=== PATIENT | male | born 1965 | race Hispanic/Latino ===

== ENCOUNTER 2023-06-12 16:17 | Emergency (ER) | payer SELFPAY ==
[2023-06-12 16:19] VITALS: BP 149/83; PULSE 61; RESP 16; TEMP 36.1; BMI 21.7
[2023-06-12 16:21] VITALS: BP 149/83; PULSE 61; RESP 16; TEMP 36.1
--- NOTE | 2023-06-12 16:28 | EDS_ITS ---
HPI History of Present Illness Chief Complaint: Nausea/Vomiting Detail of Chief Complaint: Nausea and vomiting and headache Informant: patient and spouse/S.O. Onset/Context/Timing Onset: Days Context: Sudden Onset Timing: Continuous and Waxes and wanes Quality: Nausea and vomiting after teeth extraction past Thursday Location: All of his teeth Current Severity: Moderate Maximum Severity: Severe Worsened by: Attempt to eat or drink anything Relieved by: Nothing Associated Symptoms Associated Symptoms: Headache Narrative Narrative: Patient is a 58-year-old male on no medication with no past medical history who had all of his teeth extracted this past Thursday by a dentist in [place]. He was placed on Tylenol for his pain. He has not been able to eat or drink anything for the past several days. He does endorse thirst, dry mouth and lightheadedness with standing. He also complains of global headache. He denies photophobia, neck pain or neck stiffness. He denies ringing's ears, decreased hearing or ear pain. He denies sore throat. He denies respiratory or cardiac symptoms. He denies diarrhea. He denies blood in his emesis or coffee-ground appearing emesis. He denies abdominal pain. He does endorse decreased urine output. He denies rash. Prior similar symptoms: No Recent Illness/Hospitalization: No PFSH PFSH Medical History no medical history no medical history Home Medications hydrocodone-acetaminophen 5-325mg 5mg-325mg 1 tab PO Q6H PRN PRN Pain 3 days #10 TABLETS 06/12/23 [Rx Last Taken Unknown] metformin 500 mg tablet 250 mg (1/2 x 500 mg) PO DAILY #30 tabs 06/12/23 [Rx Last Taken Unknown] ondansetron 4 mg disintegrating tablet 4 mg PO Q8H PRN PRN Nausea #10 tabs 06/12/23 [Rx Last Taken Unknown] Allergy/AdvReac Type Severity Reaction Status Date / Time No Known Allergies Allergy Verified 06/12/23 16:18 Surgical History no surgical history no surgical history Social History (Updated 06/12/23 @ 16:[address] Tan Thrasher MD) household members: spouse Smoking Status: Never smoker substance use type: does not use ROS ROS ED Constitutional Constitutional ED: Denies chills, fever(s), subjective, sweats or weight loss Eyes Eyes: Denies change in vision or diplopia ENT ENT ED: Denies ear pain, rhinorrhea or sore throat Cardiovascular Cardiovascular: Denies chest pain or palpitations Respiratory/Chest Respiratory/Chest: Denies cough, dyspnea or dyspnea on exertion Gastrointestinal Gastrointestinal: Reports nausea and vomiting; Denies abdominal pain, constipation or diarrhea Genitourinary Genitourinary ED: Denies dysuria, hematuria or urinary frequency Musculoskeletal Musculoskeletal: Denies arthralgias, back pain, myalgias or neck pain Integumentary Denies rash Neurologic Neurologic: Reports headache(s); Denies paresthesias or weakness Endocrine Endocrinology: Denies cold intolerance or heat intolerance Hematologic/Lymphatic Hematologic/Lymphatic: Reports systems reviewed and no addt'l complaints, except as documented EXAM Physical Exam Const Vital Signs: 06/12/23 16:19 06/12/23 16:21 Temperature 96.9 F L 96.9 F L Temperature Source Temporal Temporal Pulse Rate 61 61 Respiratory Rate 16 16 Blood Pressure 149/83 H 149/83 H Blood Pressure Mean 105 105 Positive well nourished and well developed General Appearance ED: well developed and NAD; Negative for cyanotic, diaphoretic or pallor HEENT Reports dry mucous membranes HEENT Narrative: Atraumatic and normocephalic. Ears are normal. Nares patent. Posterior pharynx is normal. Mouth ED: Yes dry mucous membranes Mouth: dry mucous membranes Eyes PERRL and EOMs intact bilaterally General Eye ED: Negative for pale conjunctiva or scleral icterus Neck no lymphadenopathy, supple and no JVD Chest Wall inspection of chest normal and palpation of chest normal Resp normal respiratory effort and clear to auscultation bilaterally Cardio regular rate, regular rhythm, S1 normal heart sound, S2 normal heart sound and no murmurs GI normal to inspection, nondistended, normoactive bowel sounds, non-tender, non- distended and no masses; Negative for hepatosplenomegaly Back/Spine no CVA tenderness Extremity normal to inspection General Extremety ED: Negative for edema or tenderness General Extremity: Negative for edema Neuro oriented x3, CN's II-XII intact bilaterally and no sensory deficits noted Sensorium / Orientation: alert Psych mental status grossly normal Skin no rashes or lesions noted, no wounds and No skin turgor normal General Skin Exam: Negative for jaundice or pallor MDM MDM MDM Narrative Medical decision making narrative: Appears dehydrated. Will obtain BMP to assess renal function, CO2 anion gap as well as electrolytes. IV fluids were ordered. Antiemetic was ordered as well as morphine for his headache. History & Record Review Additional record(s) reviewed:: No prior records Lab Data Labs: Laboratory Results - last 24 hr 06/12/23 16:50 Sodium 138 Potassium 3.7 Chloride 105 Carbon Dioxide 30.0 Anion Gap 3 L BUN 13 Creatinine 0.70 Estim Creat Clear Calc 93.97 Est GFR (MDRD) Af Amer 147 Est GFR (MDRD) Non-Af 121 BUN/Creatinine Ratio 18.4 Glucose 228 H Calcium 8.6 Treatment and Re-Evaluation :: Reassessed at 09/08/2003. He feels markedly better. Still complains of slight headache. He was discharged with short course of pain medicine for his gum and head pain. He was started on metformin since he has new onset diabetes Discharge Plan Triage Chief Complaint: Nausea/Vomiting ED Provider: Tan Thrasher Dx/Rx/DC Orders Clinical Impression: Headache, New onset type 2 diabetes mellitus, Dehydration, mild, Nausea & vomiting Instructions: ED Diabetes- Overview, ED Vomiting (Adult) Prescriptions: New metformin 500 mg tablet 250 mg PO DAILY Qty: 30 0RF hydrocodone-acetaminophen [hydrocodone-acetaminophen] 5-325 mg tablet 1 tab PO Q6H PRN PRN (Reason: Pain) 3 Days Qty: 10 0RF ondansetron [ondansetron] 4 mg tablet,disintegrating 4 mg PO Q8H PRN PRN (Reason: Nausea) Qty: 10 0RF Primary Care Provider: Care Physician,No Primary Referrals: Suki Martin DO [Med Staff - Press Operator Helper] - 1 Week Care Physician,No Primary [Primary Care Provider] - Disposition Disposition: Home, Self Care
[2023-06-12] MEDS: 0.9% Normal Saline (1000mL) 1,000 ML 1000 ML IV (17:01)
[2023-06-12] MEDS: Morphine 4 MG/ML Syringe IV (17:02)
[2023-06-12] MEDS: Ondansetron 4 MG/2 ML Vial IV (17:02)
[2023-06-12 17:27] LABS: Anion Gap 3 (5-15); BUN 13 mg/dL (7-18); BUN/Creat Ratio 18.4 RATIO (10-20); Calcium,Total 8.6 mg/dL (8.5-10.1); Chloride 105 mmol/L (98-107); EST Glomerular Filtration Rate 121 mL/min (>60); Est Glom Filt Rate - Afr Amer 147 mL/min (>60); Estimated Creatinine Clearance 93.97 ml/min; Glucose 228 mg/dL (74-106); Potassium 3.7 mmol/L (3.5-5.1); Sodium Level 138 mmol/L (136-145)
[2023-06-12 19:30] VITALS: BP 132/78; PULSE 71; RESP 18; O2SAT 99
== END 2023-06-12 19:31 | disposition home or self-care (01) ==
PROVIDERS: Emergency Provider Emergency Medicine; Visit Provider Emergency Medicine
DX: E11.9 Type 2 diabetes mellitus without complications (principal); R11.2 Nausea with vomiting, unspecified; R51.9 Headache, unspecified; E86.0 Dehydration
CPT/HCPCS: 80048; 96361; 96374; 96375; 99283; J7030; A4216; J2405

== ENCOUNTER 2025-05-25 13:48 | Emergency (ER) | payer SELFPAY ==
[2025-05-25 13:49] VITALS: BP 133/74; PULSE 72; RESP 14; TEMP 36.5; O2SAT 98
[2025-05-25 14:25] LABS: Hematocrit 41.7 % (40-54); Hemoglobin 14.9 g/dL (13.0-16.5); Immature Granulocytes Count 0.060 X10^3/uL (0.0-0.0); Mean Corp Hgb Conc 35.7 g/dL (32-36); Mean Corpuscular Volume 84.9 fL (80-94); Mean Platelet Vol. 10.3 fl (6.2-12.0); NRBC Flagged by Analyzer 0 % (0-5); Platelet Count 203 K/mm3 (150-450); RBC Distribution Width CV 12.0 % (11.6-14.6); RBC Distribution Width SD 36.8 fl (35.1-43.9); Red Blood Count 4.91 M/mm3 (4.6-6.2); White Blood Count 11.1 K/mm3 (4.4-11.0)
[2025-05-25] MEDS: 0.9% Normal Saline (1000mL) 1,000 ML 1000 ML IV (14:26)
[2025-05-25 14:28] VITALS: BP 130/81; BP 131/83; BP 139/79; PULSE 73; PULSE 80
--- NOTE | 2025-05-25 14:59 | EDS_ITS ---
HPI History of Present Illness Chief Complaint: Dizziness Detail of Chief Complaint: Nausea and vomiting x 30 since last night Informant: patient, spouse/S.O. and family Onset/Context/Timing Onset: Yesterday Context: Sudden Onset Timing: Intermittent Quality: Patient reports he vomited 30 times. Location: Patient noted red material with last several episodes of emesis Current Severity: Severe Maximum Severity: Severe Worsened by: Nothing Relieved by: nothing Associated Symptoms Associated Symptoms: Periumbilical abdominal pain Narrative Narrative: Patient is a 60-year-old male. He has history of type 2 diabetes. He was on insulin. He is taking neither and has not taken any medicine for diabetes for the past 12 months. He presently is on no medication. He denies fever, chills night sweats. He denies headache, visual, ocular auditory symptoms. He denies rhinorrhea, congestion or sore throat. He denies chest pain, shortness of shemar ath, difficulty breathing or cough. He states he does get pain when he vomits. He has had no diarrhea. He denies black or maroon-colored stool. Has not noted any coffee grounds in his emesis. He does endorse dry mouth and orthostatic lightheadedness. He denied decreased urine output. He has had no abdominal surgery. Prior similar symptoms: No Recent Illness/Hospitalization: No PFSH PFS Medical History Diabetes MRSA (methicillin resistant staph aureus) culture positive Home Medications ?Medication ?Instructions ?Recorded ?Last Taken ?Type hydrocodone-acetaminophen 5-325mg 1 tab PO Q6H PRN PRN Pain 3 days 06/12/23 Unknown Rx 5mg-325mg #10 TABLETS metformin 500 mg tablet 250 mg (1/2 x 500 mg) PO OMARI LY #30 06/12/23 Unknown Rx tabs ondansetron 4 mg disintegrating 4 mg PO Q8H PRN PRN Na usea #10 tabs 06/12/23 Unknown Rx tablet insulin NPH isoph U-100 human 100 15 unit (0.15 mL) marie bcut BID #15 mL 10/07/24 Unknown Rx unit/mL (3 mL) subcutaneous pen (Novolin N FlexPen) metformin 500 mg tablet 500 mg PO BID 30 days #60 ta bs 10/07/24 Unknown Rx oseltamivir 75 mg capsule 75 mg PO BID 2 days #4 caps 10/07/24 Unknown Rx famotidine 40 mg tablet (Pepcid) 40 mg PO DAILY #7 tab s 05/25/25 Unknown Rx ondansetron 4 mg disintegrating 4 mg PO Q8H PRN PRN Na usea #10 tabs 05/25/25 Unknown Rx tablet Allergy/AdvReac Type Severity Reaction Status Date / Time No Known Allergies Allergy Verified 05/25/25 13:51 Social History household members: spouse Smoking Status: Never smoker substance use type: does not use ROS ROS ED Constitutional Constitutional ED: Denies chills, fever(s), subjective or sweats Eyes Eyes: Denies blurry vision, change in vision or diplopia ENT ENT ED: Denies rhinorrhea or sore throat Cardiovascular Cardiovascular: Denies chest pain or palpitations Respiratory/Chest Respiratory/Chest: Denies cough, dyspnea or dyspnea on exertion Gastrointestinal Gastrointestinal: Reports abdominal pain, nausea and vomiting; Denies constipation, diarrhea or melena Genitourinary Genitourinary ED: Denies dysuria, hematuria or urinary frequency Musculoskeletal Musculoskeletal: Denies myalgias Integumentary Denies rash Neurologic Neurologic: Reports weakness; Denies paresthesias Hematologic/Lymphatic Hematologic/Lymphatic: Reports systems reviewed and no addt'l complaints, except as documented EXAM Physical Exam Const Vital Signs: 05/25/25 13:49 05/25/25 14:28 05/25/25 15:48 Temperature 97.7 F L Temperature Source Oral Pulse Rate 72 75 Pulse Rate [Lying] 73 Pulse Rate [Sitting (for 1 minute prior to obtaining)] 80 Respiratory Rate 14 13 Blood Pressure 133/74 H 133/87 H Blood Pressure [Lying] 139/79 H Blood Pressure [Sitting (for 1 minute prior to obtaining)] 131/83 H Blood Pressure [Standing (for 1 minute prior to obtaining)] 130/81 H Blood Pressure Mean 93 102 Blood Pressure Mean [Lying] 99 Blood Pressure Mean [Sitting (for 1 minute prior to obtaining)] 99 Blood Pressure Mean [Standing (for 1 minute prior to obtaining)] 97 Pulse Ox 98 98 Oxygen Delivery Method Room Air Room Air Positive well nourished and well developed Constitutional Narrative: Patient was actively vomiting when I entered the room. There appears to be some blood streaks noted. He vomited into the wastebasket and unable to see the bottom. General Appearance ED: well developed; Negative for cyanotic, diaphoretic or pallor HEENT Reports moist mucous membranes HEENT Narrative: Uvula is midline. There is no deviation tongue or protrusion. Head is atraumatic and normocephalic. Eyes PERRL and EOMs intact bilaterally General Eye ED: Negative for pale conjunctiva or scleral icterus Neck no lymphadenopathy, supple and no JVD Chest Wall inspection of chest normal and palpation of chest normal Resp normal respiratory effort and clear to auscultation bilaterally Cardio regular rate, regular rhythm, S1 normal heart sound, S2 normal heart sound and no murmurs GI non-distended and no masses; Negative for non-tender or hepatosplenomegaly Inspection: Negative for abdominal distention Auscultation: hypoactive bowel sounds Palpation: soft and tender periumbilical; Negative for guarding, mass or rebound tenderness present Back/Spine no CVA tenderness Extremity normal to inspection General Extremety ED: Negative for edema or tenderness General Extremity: Negative for edema Neuro oriented x3, CN's II-XII intact bilaterally and no sensory deficits noted Sensorium / Orientation: alert Motor Exam: strength 5/5 throughout Psych mental status grossly normal Skin no rashes or lesions noted, no wounds and skin turgor normal General Skin Exam: elasticity normal; Negative for jaundice or pallor MDM MDM MDM Narrative Medical decision making narrative: Will obtain electrolyte panel for assessment of glucose since he is diabetic, renal function, electrolytes as well as CO2 anion gap. CBC to assess H&H. He appears pale which may be because he is ill. Orthostatic vital signs were ordered as well. 1 L normal saline was ordered wide open and he was treated with Zofran for his vomiting. Will have nurse drop in NG. If it is positive for blood suspect this is a Elin-Pineda tear There is significant mount of blood or coffee-ground emesis may be more significant and will consult GI. Lab Data Attestation: I reviewed the patient's lab results. Lab results narrative: CBC is unremarkable. White count is slightly elevated. There is a slight shift. This could be due to the fact that he has vomited 30 times. And, this represents a stress reaction. Basic metabolic panel was marked for glucose of 294 with a normal CO2 anion gap. Electrolytes are normal. Renal functions normal. His BUN to creatinine ratio is approximately 28-1. This would be consistent with his presentation and the fact that he is dehydrated. Labs: Laboratory Results - last 24 hr 05/25/25 05/25/25 14:15 14:59 WBC 11.1 H RBC 4.91 Hgb 14.9 Hct 41.7 MCV 84.9 MCH 30.3 MCHC 35.7 RDW Std Deviation 36.8 RDW Coeff of Hussain 12.0 Plt Count 203 MPV 10.3 Immature Gran % (Auto) 0.500 Neut % (Auto) 85.7 H Lymph % (Auto) 9.4 L Clinch % (Auto) 4.1 Eos % (Auto) 0.0 Baso % (Auto) 0.3 Absolute Neuts (auto) 9.5 H Absolute Lymphs (auto) 1.05 Nucleated RBC % 0 Sodium 138 Potassium 3.9 Chloride 100 Carbon Dioxide 24.4 Anion Gap 14 BUN 20 H Creatinine 0.70 Est GFR (MDRD) Non-Af 104 BUN/Creatinine Ratio 27.8 H Glucose 294 H Calcium 9.1 POC Glucose 265 H Treatment and Re-Evaluation :: Not sure patient was informed of results. Patient passed p.o. challenge. Patient was informed he needs to resume his metformin since his blood sugar was approximately 300. He asked if I would prescribe him something for leg cramps at night. I recommend that he drink tonic water's. Comments:: Nurse informing that patient refused NG. Patient understands that there may be active bleeding. He was informed the likelihood of this less than 1%. He would rather not have the NG placed. He was treated with H2 patricia. Discharge Plan Triage Chief Complaint: Dizziness Other Complaint: Nausea/Vomiting ED Provider: Tan Thrasher Dx/Rx/DC Orders Clinical Impression: Intractable nausea and vomiting, Acute prerenal azotemia, Type 2 diabetes mellitus with hyperglycemia, Noncompliance with medication regimen, Elin- Pineda tear Instructions: ED Vomiting (Adult) Prescriptions: New ondansetron 4 mg tablet,disintegrating 4 mg PO Q8H PRN PRN (Reason: Nausea) Qty: 10 0RF famotidine [Pepcid] 40 mg tablet 40 mg PO DAILY Qty: 7 0RF No Action metformin 500 mg tablet 250 mg PO DAILY Qty: 30 0RF hydrocodone-acetaminophen [hydrocodone-acetaminophen] 5-325 mg tablet 1 tab PO Q6H PRN PRN (Reason: Pain) 3 Days Qty: 10 0RF ondansetron [ondansetron] 4 mg tablet,disintegrating 4 mg PO Q8H PRN PRN (Reason: Nausea) Qty: 10 0RF oseltamivir 75 mg Capsule 75 mg PO BID 2 Days Qty: 4 0RF metformin 500 mg tablet 500 mg PO BID 30 Days Qty: 60 0RF Novolin N FlexPen 100 unit/mL (3 mL) insulin pen 15 unit subcut BID Qty: 15 0RF Primary Care Provider: Alexander Eller Referrals: Alexander Eller, CONSTRUCTION WORKER-C [Primary Care Provider, Family Practice] - 3-5 Days if not improving Activity Restrictions/Additional Instructions: You need to restart your metformin. Your blood sugar was approximately 300. You need to increase your fluid intake for the next 24 to 48 hours. Print Language: Romansh Disposition Disposition: Home, Self Care
[2025-05-25 15:06] LABS: Anion Gap 14 (5-15); BUN 20 mg/dL (4-19); BUN/Creat Ratio 27.8 RATIO (10-20); Calcium,Total 9.1 mg/dL (7.6-11.0); Carbon Dioxide 24.4 mmol/L (21.0-32.0); Chloride 100 mmol/L (98-108); Glucose 294 mg/dL (70-99); Potassium 3.9 mmol/L (3.3-5.1)
[2025-05-25 15:48] VITALS: BP 133/87; PULSE 75; RESP 13; O2SAT 98
--- NOTE | 2025-05-25 16:04 | ED.RN ---
This RN explained to Pt the purpose of NG insertion and the process. Pt stating that he does not want NG. Dr Thrasher notified.
[2025-05-25 16:38] VITALS: BP 137/102; PULSE 78; RESP 17; TEMP 36.6; O2SAT 98
== END 2025-05-25 16:42 | disposition home or self-care (01) ==
PROVIDERS: Emergency Provider Emergency Medicine; Visit Provider Emergency Medicine
DX: R42 Dizziness and giddiness (principal); E11.65 Type 2 diabetes mellitus with hyperglycemia; Z79.4 Long term (current) use of insulin; K22.6 Gastro-esophageal laceration-hemorrhage syndrome; Z91.148 Patient's other noncompliance with medication regimen for other reason; R11.2 Nausea with vomiting, unspecified; Z79.84 Long term (current) use of oral hypoglycemic drugs
CPT/HCPCS: 80048; 82962; 85025; 96361; 96374; 99285; A4216; J2405